=== PATIENT | male | born 1950 | race Two or more races ===

== ENCOUNTER → 2019-12-09 | Day surgery (SDC) | payer OTHER ==
[~2019-12-09] MED LIST: FENTANYL CITRATE/PF 100MCG/2 ML INJ ONE; GABAPENTIN400 MG PO; METFORMIN HCL850 MG PO; MIDAZOLAM HCL 2 MG/2 ML VIAL ONE; MOXIFLOXACIN HCL(OPTH) 3 ML BTL ONE; NOVOLIN 70100 UNIT/3 SC; OR PHACO EYE KIT ONE; PREOP PHACO EYE KIT ONE
[2019-12-09 15:15] VITALS: BP 134/69
== END | disposition home or self-care (01) ==
LOC: OR 11:32
PROVIDERS: ATTEND Ophthalmology
DX: H25.12 Age-related nuclear cataract, left eye (principal); E11.9 Type 2 diabetes mellitus without complications; I49.3 Ventricular premature depolarization; F41.9 Anxiety disorder, unspecified; Z01.812 Encounter for preprocedural laboratory examination; Z11.59 Encounter for screening for other viral diseases; Z79.4 Long term (current) use of insulin
CPT/HCPCS: 36415; 66984; 82948; J2250; J3010; U0002; V2632